=== PATIENT | female | born 1980 | race African-American/Black ===

== ENCOUNTER 2016-09-04 11:24 | Emergency (ER) | payer OTHER ==
--- NOTE | ~2016-09-04 | US134 ---
[facility] A Service of [facility] RADIOLOGY TEXT RESULTS PATIENT: TAYLER MANLEY LOCATION: SED : 78 UNIT #: [id number] AGE: [address]: Keeley Florian MD SEX: F ORDER DR: [id number] [address] [address] [id number] E MR#: [id number] Acc #: [id number] NAME: TAYLER MANLEY : 1980 SEX: F STUDY DATE/TIME: 09/04/2016 13:50 UNIT: SED ROOM: STUDY DESCRIPTION: US Transvaginal Attending Physician: Keeley Florian M.D. Referring Physician: Keeley Florian M.D. Ordering Physician: Keeley Florian M.D. MEDICAL IMAGING REPORT This report is preliminary unless electronic signature is present. EXAM Pelvic ultrasound 09/04 INDICATIONS Cramping and spotting for 2 weeks. Patient . TECHNIQUE Transvaginal imaging is performed of the pelvis in multiple planes. COMPARISON STUDIES No comparison. FINDINGS Uterus measures about 9.1 x 5.6 x 5.8 cm. There is an uterine . Heart rate by Doppler is 180 beats per minute. Estimated age by ultrasound measurement is 7 weeks, 6 days for an estimated date of confinement of 04/17/2017. Small yolk sac is present. The ovaries are not identified. There is no free fluid. IMPRESSION Living intrauterine with estimated age of 7 weeks, 6 days. Heart rate 180 beats per minute. The ovaries cannot be identified. Dictated by... Jc Jacob Jr., M.D. THIS IS AN ELECTRONICALLY VERIFIED REPORT Jc Jacob Jr., M.D. at 09/05/2016 7:09 PM RLK/jovany [facility] A Service of [facility] RADIOLOGY TEXT RESULTS PATIENT: TAYLER MANLEY LOCATION: SED : 78 UNIT #: [id number] AGE: [address]: Keeley Florian MD SEX: F ORDER DR: TD: 09/04/2016 20:21 JOB #: [id number] MEDICAL IMAGING REPORT Page 1 of 1
[~2016-09-04 11:24] MED LIST: AMOXICILLIN500 M1 PO; DEPO-PROVER150 MG/ML INJ; FLEXERIL PO; FLEXERIL10 MG PO; HYDROCODONE-APA1 T42 PO; LORTAB 5/500 TA1 TA2 PO; MEDROL4 MG/DOSE- PO; NAPROSYN500 MG PO; NO MEDICATIONS
[2016-09-04] MEDS ORDERED: ZESTORETIC 10-1 EAC1 (11:51)
[2016-09-04 12:23] LABS: URINE APPEARANCE CLEAR; URINE BILIRUBIN NEG (NEG); URINE BLOOD NEG (NEG); URINE COLOR YELLOW; URINE GLUCOSE NEG (NORM); URINE KETONE NEG (NEG); URINE LEUKOCYTE ESTERASE NEG (NEG); URINE NITRATE NEG (NEG); URINE PH 7.5 (5-8); URINE PROTEIN NEG (NEG); URINE SOURCE CLEAN CATCH; URINE SPECIFIC GRAVITY 1.015 (1.003-1.035)
[2016-09-04 12:28] LABS: MICRO INDICATED? NO
[2016-09-04 12:46] LABS: BASOPHIL# 0.1 X10e3 (0-0.3); BASOPHIL% 0.9 % (0-2.5); EOSINOPHIL% 0.4 % (0.0-7.0); HEMATOCRIT 36.8 % (35.0-45.0); HEMOGLOBIN 12.7 gm/dL (12.0-16.0); LYMPHOCYTE% 31.7 % (17.0-45.0); MEAN CELL VOLUME 98.3 FL (83-96); MEAN CORPUSCULAR HGB CONC 34.6 g/dL (30-36); MEAN PLATELET VOLUME 7.1 FL (6.5-11.5); MONOCYTE# 0.5 X10e3 (0-1.0); MONOCYTE% 7.5 % (3.0-12.0); NEUTROPHIL# 3.7 X10e3 (1.5-7.1); NEUTROPHIL% 59.5 % (40-75); PLATELET COUNT 226 X10e3 (140-420); RED BLOOD COUNT 3.75 X10e (3.90-5.30); RED CELL DISTRIBUTION WIDTH 12.4 % (11.0-15.5); WHITE BLOOD COUNT 6.2 X10e3 (4.0-10.5)
[2016-09-04 12:53] LABS: DIFF IND NO
[2016-09-04 13:06] LABS: ALBUMIN SERUM 4.5 g/dL (3.5-5.0); BILIRUBIN, DIRECT 0.2 mg/dL (0.0-0.2); BILIRUBIN,INDIRECT 0.6 mg/dL (0.0-0.9); BILIRUBIN,TOTAL 0.8 mg/dL (0.2-2.0); BUN/CREATININE RATIO 11.42; CALCIUM SERUM 9.4 mg/dL (8.4-10.2); CREATININE SERUM 0.7 mg/dL (0.6-1.4); GLOM FILT RATE Estimated 129.2 mL/min (>60); POTASSIUM 3.5 mmol/L (3.5-5.1); PROTEIN TOTAL SERUM 7.9 g/dL (6.0-8.3)
== END 2016-09-04 15:07 | disposition home or self-care (01) ==
LOC: SED 11:24
PROVIDERS: Student in an Organized Health Care Education/Training Program
DX: O99.89 Other specified diseases and conditions complicating pregnancy, childbirth and the puerperium (principal); Z3A.01 Less than 8 weeks gestation of pregnancy; O99.331 Smoking (tobacco) complicating pregnancy, first trimester; F17.200 Nicotine dependence, unspecified, uncomplicated
CPT/HCPCS: 36415; 76830; 80048; 80076; 81003; 84702; 85025; 86900; 86901; 99284